=== PATIENT | male | born 1995 | race American Indian/Alaskan Native ===

== ENCOUNTER 2017-01-07 05:24 | Emergency (ER) | payer OTHER ==
[~2017-01-07] VITALS: Ht 170.2 cm; Wt 106.5 kg
[2017-01-07 05:28] VITALS: Ht 170.2 cm; Wt 106.5 kg
[2017-01-07] MEDS ORDERED: CPROT OP (05:45)
[2017-01-07] MEDS ORDERED: AMOX500C3 PO (05:45)
[2017-01-07] MEDS ORDERED: AMOXICILLIN 250 MG CAP PO STA (05:50)
[2017-01-07] MEDS ORDERED: IBUPROFEN 600 MG TAB PO STA (05:50)
--- NOTE | 2017-01-07 05:52 | EMERGENCY ROOM VISIT NOTE ---
History First contact with patient: 05:34 Chief Complaint: EAR PAIN Stated Complaint: EAR PAIN History of Present Illness The patient is a 21 year old male who presents to the Emergency Room with complaints of right ear pain and discomfort for the past day who has had a few days with a cold symptoms. Patient denies fever, chills, headache, neck stiffness, sore throat, abdominal pain or any other medical complaints. Patient requested his friend interpret. He is Hungarian-speaking. Review of Systems See HPI for pertinent positives & negatives. A total of 6 systems reviewed and were otherwise negative. Past Medical/Surgical History None Social History Smoking Status: Never Smoker Smokeless Tobacco Use: No Alcohol Use: none Drug Use: none Occupation Status: employed Current/Historical Medications Scheduled Amoxicillin (Amoxil), 500 MG PO TID Ciprofloxacin-Hydrocortisone (Cipro Hc Otic), 4 DROPS OP BID Allergies Coded Allergies: No Known Allergies (Unverified , 01/07/17) Physical Exam Vital Signs Date Time Temp Pulse Resp B/P (MAP) Pulse Ox O2 Delivery O2 Flow Rate FiO2 01/07/17 05:28 36.9 86 20 133/93 92 Room Air Physical Exam VITALS: Vitals are noted on the nurse's note and reviewed by myself. Vital signs stable. GENERAL: Pleasant male, in no acute distress, nondiaphoretic, well-developed well-nourished. SKIN: The skin was without rashes, erythema, edema, or bruising. There is no tenting of the skin. Capillary reflex less than 2 seconds. HEAD: Normocephalic atraumatic. EARS: Right external auditory canal edematous and erythematous tympanic membrane bulging with fluid present, left External auditory canals clear, tympanic membranes pearly prather without erythema or effusion no mastoid tenderness bilaterally. EYES: Pupils equal round and reactive to light and accommodation. Conjunctivae without injection, sclerae without icterus. Extraocular movements intact. NOSE: Patent, turbinates without inflammation or discharge. No sinus tenderness. MOUTH: Mucous membranes moist. Pharynx without erythema or exudate. Uvula midline. Airway patent. Tongue does not deviate. NECK: Supple without nuchal rigidity. No lymphadenopathy. No thyromegaly. Cervical spine is nontender. No JVD. No meningeal signs HEART: Regular rate and rhythm without murmurs gallops or rubs. LUNGS: Clear to auscultation bilaterally without wheezes, rales or rhonchi. No dullness to percussion. No retractions or accessory muscle use. ABDOMEN: Positive bowel sounds x 4. Normal tympanic percussion. Soft, nontender, without masses or organomegaly. Anna sign negative. No guarding or rebound tenderness. MUSCULOSKELETAL: No muscle atrophy, erythema, or edema noted. NEURO: Patient was alert and oriented to person place and time. Normal sensation to light and sharp touch. No focal neurological deficits. Medical Decision & Procedures ED Course Prior records/ancillary studies reviewed. Triage Nursing notes reviewed. Additional history obtained from friend The patient's history was concerning for a ear pain Differential diagnosis: Etiologies such as otitis, viral syndrome, tonsillitis, pneumonia, influenza, as well as others were entertained. ER treatment provided: Amoxicillin On reassessment the patient felt better. Diagnostics interpreted by me: Deferred This appears to be consistent with otitis. Patient was started on antibiotics. His ear canals quite edematous is also given Cipro drops Prescription. His tragus is also quite tender to palpation. Patient no signs of mastoiditis or meningitis. He is well-appearing. He was advised to take medications as directed and to follow-up family care in a few days or here in the ER sooner for headache, high fevers, neck stiffness, worsening signs or symptoms or as needed. By the evaluation outlined above emergent etiologies such as pneumonia, meningitis, sepsis, bacteremia, as well as others were deemed relatively unlikely. The pt informed about the findings as listed above. All questions were answered and pleased with the treatment. Return instructions were outlined and the patient was discharged in stable condition. Outpatient prescription management: Amoxicillin, Cipro drops Referral: The patient was referred back to their primary care physician for follow-up in 2 to 3 days for a recheck of the current condition. Medical Decision As above Impression Primary Impression: Right otitis media Additional Impression: Otitis externa of right ear Departure Information Dispostion Home / Self-Care Condition GOOD Prescriptions Ciprofloxacin-Hydrocortisone (CIPRO HC OTIC) 1 Iraida Iraida 4 DROPS OP BID for 7 Days, #1 BTL Prov: Alem Hawley .BETSY 01/07/17 Amoxicillin (AMOXIL) 500 Mg Cap 500 MG PO TID for 10 Days, #30 CAP Prov: Alem Hawley PA-C 01/07/17 Forms WORK / SCHOOL INSTRUCTIONS, HOME CARE DOCUMENTATION FORM, IMPORTANT VISIT INFORMATION Patient Instructions My [facility], ED Otitis Media Acute Adult Additional Instructions Amoxicillin 500mg: Take one pill 3 times daily for 10 days for your infection. All antibiotics can cause diarrhea. If this occurs and you feel worse or it does not resolve in 1-2 days follow up with your doctor or return to the Emergency Department as this could be signs of serious underlying problems. Any medication can cause an allergic reaction, stop the pills immediately and return to the ER for rash, hives, breathing difficulties, or swelling. Cipro drops: 4 drops 2 times a day for one week to the right ear. Acetaminophen(Tylenol) may be used for fever or pain. Use 1000mg every six hours as needed. Avoid using more than 3000mg in a 24 hour period. (AND/OR) Ibuprofen(Motrin, Advil) may be used for fever or pain. Use 600mg every six hours as needed. Take with food. Avoid using more than 2400mg in a 24 hour period. Do not use 2400mg per day for more than three consecutive days without physician direction. Prolonged inappropriate use can lead to stomach upset or ulcers. Afrin nasal spray: 2-3 sprays to each nostril twice daily as needed for congestion. Do not use for more than 3-4 days because it can lead to worsening rebound congestion. Pseudoephedrine(Sudaphed): 30-60mg every 6 hours as needed for nasal congestion. Do not take this with other stimulant products or supplements. Rest and drink plenty of fluids. Controlling your fever with Tylenol and Ibuprofen as above will make you feel better. Wash your hands after nose blowing, sneezing, or coughing. Most germs are spread through contact, therefore improper hygiene may result in your close contacts and loved ones becoming ill just like you. Continue current medications. Return to the ER for severe headache, neck stiffness, chest pain, difficulty breathing, fevers, vomiting, worsening of your condition, or as needed. Follow up with your primary physician this week for a recheck of your current condition. Problem Qualifiers Primary Impression: Right otitis media Otitis media type: suppurative Chronicity: acute Recurrence: not specified as recurrent Spontaneous tympanic membrane rupture: without spontaneous rupture Qualified Codes: H66.001 - Acute suppurative otitis media without spontaneous rupture of ear drum, right ear Additional Impression: Otitis externa of right ear Otitis externa type: unspecified type Chronicity: acute Qualified Codes: H60.501 - Unspecified acute noninfective otitis externa, right ear
[2017-01-07 06:10] VITALS: BP 133/93; PULSE 86; TEMP 36.9; O2SAT 95
--- NOTE | 2017-01-07 14:35 | Pharmacy Progress Note ---
ED Pharmacist Progress Note Date of Service: Jan 07, 2017. Received phone call from Pharmacist, Mary, at [facility] ([phone] ) today. The patient was seen in ER and dx with otitis media and otitis externa. The patient has no insurance and was prescribed Cipro HC otic drops which are reported to cost the patient ~$400.00. Pharmacist asked in Cipro 0.3 % ophthalmic could be substituted as it would only cost $29.00. Discussed with Dr Willingham, who agreed to make the switch. Rx changed to Cipro 0.3% ophthalmic 3 drops in affected ear BID x [phone]
== END 2017-01-07 06:08 | disposition home or self-care (01) ==
LOC: C.EDB 05:25 → C.EDA 06:08
DX: H66.001 Acute suppurative otitis media without spontaneous rupture of ear drum, right ear (principal); H60.501 Unspecified acute noninfective otitis externa, right ear